=== PATIENT | female | born 1960 | race Caucasian/White ===

== ENCOUNTER 2018-06-06 14:33 | Emergency (ER) | payer SELFPAY ==
--- NOTE | 2018-06-06 15:02 | C.PDOC ---
History Of Present Illness 57 y/o female presents to the ED with 2 week history of low back pain. Patient is here visiting from [place]. Denies recent trauma or fall. She reports the pain is worse when leaning forward, relieved by leaning back. Otherwise patient denies dysuria, hematuria, numbness, weakness, or tingling. She complains pain is localized to the midline. Time Seen by Provider: 06/06/18 14:45 Chief Complaint (Nursing): Lower Extremity Problem/Injury History Per: Patient History/Exam Limitations: no limitations Onset/Duration Of Symptoms: Days Current Symptoms Are (Timing): Still Present Past Medical History Reviewed: Historical Data, Nursing Documentation, Vital Signs Vital Signs: Last Vital Signs Temp 98.6 F 06/06/18 14:42 Pulse 75 06/06/18 14:42 Resp 18 06/06/18 14:42 BP 130/72 06/06/18 14:42 Pulse Ox 100 06/06/18 16:43 - Medical History PMH: No Chronic Diseases Surgical History: No Surg Hx Family History: States: No Known Family Hx - Social History Hx Alcohol Use: No Hx Substance Use: No - Immunization History Hx Tetanus Toxoid Vaccination: No Hx Influenza Vaccination: No Hx Pneumococcal Vaccination: No Review Of Systems Except As Marked, All Systems Reviewed And Found Negative. Constitutional: Negative for: Fever, Chills Gastrointestinal: Negative for: Abdominal Pain Genitourinary: Negative for: Dysuria, Frequency, Hematuria Musculoskeletal: Positive for: Back Pain Neurological: Negative for: Weakness, Numbness, Incoordination Physical Exam - Physical Exam Appears: Well, Non-toxic, No Acute Distress Skin: Warm, Dry, Other (Pigment changes to the lower feet) Head: Atraumatic, Normacephalic Eye(s): bilateral: Normal Inspection, PERRL, EOMI Neck: Supple Cardiovascular: Rhythm Regular Respiratory: Normal Breath Sounds Back: Vertebral Tenderness (Pinpoint lumbar spine tenderness), No Muscle Spasm, No Paraspinal Tenderness Extremity: Normal ROM (to bilateral upper and lower extremities), No Pedal Edema , No Deformity, No Swelling Pulses: Left Dorsalis Pedis: Normal, Right Dorsalis Pedis: Normal Neurological/Psych: Oriented x3, Normal Speech, Normal Cranial Nerves, Normal Motor, Normal Sensation Gait: Steady (ambulatory in fast track) ED Course And Treatment O2 Sat by Pulse Oximetry: 100 (RA) Pulse Ox Interpretation: Normal Medical Decision Making Medical Decision Making: Initial Impression: Low back pain Plan: Ordered x-ray of the lumbar spine. Patient treated with 15 mg IM Toradol. Progress/updates: 4pm - On reevaluation patient is now complaining of right elbow and ankle injuries as well. States that she fell a few weeks ago and has noticed persistent swelling to the ankle. Requesting x-ray of the ankle. On examination of right elbow there is no swelling or deformity, with full ROM intact, normal sensation and strength. No indication for xray after hitting R elbow > 1 week ago. Right ankle has mild swelling to the lateral malleolus. No deformity, tenderness , or skin changes. Normal ROM of both lower extremities, with full flexion/ extension. Will order x-ray of the right ankle to rule out fracture. Patient ambulating around the ED without issue. Disposition - Disposition Referrals: [facility] [Outside] Disposition: HOME/ ROUTINE Disposition Time: 16:41 Condition: GOOD Additional Instructions: Follow-up with [facility] if you have no PMD within 2 days. Return to ED if condition worsens. Motrin for back pain. Prescriptions: Ibuprofen [Motrin] 400 mg PO Q6 PRN #15 tab PRN Reason: Pain, Mild (1-3) Instructions: Ankle Sprain, Spinal Stenosis, Low Back Pain (DC) - Clinical Impression Clinical Impression: Ankle sprain, Back pain - Scribe Statement The provider has reviewed the documentation as recorded by the Scribe (Radha Martinez) Provider Attestation: All medical record entries made by the Scribe were at my direction and personally dictated by me. I have reviewed the chart and agree that the record accurately reflects my personal performance of the history, physical exam, medical decision making, and the department course for this patient. I have also personally directed, reviewed, and agree with the discharge instructions and disposition.
[2018-06-06] MEDS ORDERED: Lidocaine 5% Patch TD STA (16:02)
[2018-06-06] MEDS ORDERED: Lidocaine 5% Patch TD ONE (16:12)
[2018-06-06 16:55] VITALS: BP 121/72; PULSE 67; RESP 20; TEMP 98; O2SAT 98
--- NOTE | 2018-06-07 07:51 | RAD ---
Date of service: 06/06/2018 PROCEDURE: Right Ankle Radiographs. HISTORY: R ankle pain after trauma COMPARISON: None FINDINGS: BONES: Normal. No fracture. There is small calcaneus spur JOINTS: Normal. No osteoarthritis. Ankle mortise maintained. Talar dome intact SOFT TISSUES: Mild soft tissue swelling. OTHER FINDINGS: None. IMPRESSION: No evidence of acute fracture or dislocation.
--- NOTE | 2018-06-07 08:52 | RAD ---
Date of service: 06/06/2018 PROCEDURE: Radiographs of the Lumbar Spine. HISTORY: midline back pain COMPARISON: No prior. FINDINGS: BONES: Normal alignment. No listhesis. No fracture. DISC SPACES: Limited multilevel lumbar spondylosis diffusely noted. Mild disc height loss at L4-5 identified with remaining intervertebral discs and vertebral body heights normal. OTHER FINDINGS: None. IMPRESSION: Limited multilevel degenerative disc disease. No fracture or spondylolisthesis evident.
== END 2018-06-06 17:04 | disposition home or self-care (01) ==
LOC: C.ER 14:33
DX: M54.5 Low back pain (principal); S93.401A Sprain of unspecified ligament of right ankle, initial encounter; W19.XXXA Unspecified fall, initial encounter
CPT/HCPCS: 72100; 73610; 96372; 99284; J1885